=== PATIENT | male | born 1950 | race Caucasian/White ===

== ENCOUNTER → 2019-04-07 14:25 | Outpatient (CLI) | payer MEDICARE, OTHER | END | disposition home or self-care (01) | LOC: D.LAB 14:25 | PROVIDERS: ATTEND Urology | DX: R31.9 Hematuria, unspecified (principal) ==

== ENCOUNTER → 2019-04-11 09:29 | Outpatient (CLI) | payer MEDICARE, OTHER | END | disposition home or self-care (01) | LOC: D.CT 09:29 | PROVIDERS: ATTEND Urology | DX: R31.21 Asymptomatic microscopic hematuria (principal) ==

== ENCOUNTER → 2019-08-12 13:03 | Outpatient (CLI) | payer MEDICARE, OTHER ==
[~2019-08-12] VITALS: Ht 188 cm; Wt 99.8 kg
[~2019-08-12 13:03] MED LIST: ALBUTEROL SULF8.5 GM INH; AMOXICILLIN500 M1 PO; CARDURA1 MG PO; CELEXA40 MG PO; COREG25 MG PO; GLIMEPIRIDE2 MG PO; HYDROCODON-ACE1 EAC7 PO; JANUVIA100 MG PO; MICARDIS40 MG PO; NORVASC5 MG PO; PRAVACHOL40 MG PO; PROSCAR5 MG PO
[2019-08-12 14:30] VITALS: Ht 188 cm; Wt 99.8 kg
== END | disposition home or self-care (01) ==
LOC: D.FANS 13:00
PROVIDERS: ATTEND Family Medicine
DX: E11.65 Type 2 diabetes mellitus with hyperglycemia (principal)